=== PATIENT | male | born 1970 | race Hispanic/Latino ===

== ENCOUNTER 2024-06-19 17:20 | Emergency (ER) | payer OTHER, SELFPAY ==
[2024-06-19] MEDS ORDERED: Boostrix 0.5 ML (Tdap) VIAL (>/=7 yrs of age) ONE (17:43)
[2024-06-19] MEDS ORDERED: Lidocaine 1% PF 5 ML VIAL ONE (17:43)
[2024-06-19] MEDS ORDERED: Bacitracin 1 PK ONE (17:43)
== END 2024-06-19 18:58 | disposition home or self-care (01) ==
LOC: BURERS 17:20
DX: S01.511A Laceration without foreign body of lip, initial encounter (principal); S01.111A Laceration without foreign body of right eyelid and periocular area, initial encounter; I10 Essential (primary) hypertension; E11.9 Type 2 diabetes mellitus without complications; W22.8XXA Striking against or struck by other objects, initial encounter; Y93.89 Activity, other specified; Z23 Encounter for immunization; Z79.84 Long term (current) use of oral hypoglycemic drugs; Z79.899 Other long term (current) drug therapy
CPT/HCPCS: 12014; 90471; 90715

== ENCOUNTER 2024-07-14 03:56 | Emergency (ER) | payer OTHER, SELFPAY ==
[2024-07-14] MEDS ORDERED: Ibuprofen 800 MG TAB ONE (04:33)
[2024-07-14] MEDS ORDERED: Ondansetron ODT 4 MG TAB ONE (04:33)
[2024-07-14] MEDS ORDERED: Amoxicillin/Potassium Clav 875 MG TAB ONE (04:46)
== END 2024-07-14 05:15 | disposition home or self-care (01) ==
LOC: BURERS 03:56
DX: J18.9 Pneumonia, unspecified organism (principal); E11.9 Type 2 diabetes mellitus without complications; I10 Essential (primary) hypertension; Z79.84 Long term (current) use of oral hypoglycemic drugs; Z79.899 Other long term (current) drug therapy
CPT/HCPCS: 36416; 87428; 99283; Q0162